=== PATIENT | female | born 1950 | race Caucasian/White ===

== ENCOUNTER 2022-03-17 13:28 | Inpatient (IN) | payer MEDICARE, SELFPAY ==
[2022-03-17] MEDS ORDERED: DOPamine 400 MG/D5W 250 ML 250 ML ONE (13:29)
[2022-03-17] MEDS ORDERED: Ondansetron PF 4 MG/2 ML Vial ONE (13:35)
[2022-03-17 14:22] LABS: #Lymphocytes 1.1 thou/uL (1.20-3.40); #Monocytes 0.5 thou/uL (0.11-0.59); #Neutrophils 7.8 thou/uL (1.40-6.50); %Basophils 0.2 % (0.0-1.0); %Eosinophils 0.1 % (0.0-10.0); %Lymphocytes 11.8 % (21.0-51.0); %Monocytes 5.4 % (0.0-10.0); %Neutrophils 82.4 % (42.0-75.0); Mean Corpuscular HGB CONC 33.6 g/dL (32.0-36.0); Mean Corpuscular Hemoglobin 32.1 pg (27.0-31.0); Mean Corpuscular Volume 95.6 fL (78.0-98.0); Platelet Count 188 thou/uL (130-400); RBC Distribution Width 11.3 % (11.5-14.5); Red Blood Cell (RBC) Count 4.98 mill/uL (4.20-5.40); White Blood Cell (WBC) Count 9.5 thou/uL (4.8-10.8)
[2022-03-17 14:31] LABS: CKMB 15.4 ng/mL (0-6.6)
[2022-03-17 14:39] LABS: Anion Gap 22 mmol/L (10-20); BUN (Urea Nitrogen) 9 mg/dL (9.8-20.1); Calc. Creatinine Clearance 0 mL/min (70-130); Calcium 8.4 mg/dL (7.8-10.44); Carbon Dioxide 15 mmol/L (23-31); Chloride 106 mmol/L (98-107); Estimated GFR 86; Glucose 126 mg/dL (80-115); Magnesium 1.9 mg/dL (1.6-2.6); Potassium 4.2 mmol/L (3.5-5.1); Sodium 139 mmol/L (136-145)
[2022-03-17] MEDS ORDERED: Electrolyte Replacement Protocol 1 EACH IVPB ONE (14:58)
[2022-03-17] MEDS ORDERED: Electrolyte Replacement Protocol FS PRN (15:30)
[2022-03-17] MEDS ORDERED: Magnesium 2 GM/50 ML(in water) 2 GM in Premix Bag 1 BAG IVPB SCH (15:30)
[2022-03-17 15:44] LABS: Lactic Acid 1.2 mmol/L (0.5-2.2)
[2022-03-17] MEDS: Sodium Chloride 0.9% 1,000 ML IV SCH (17:32)
[2022-03-17 17:50] LABS: Troponin I 6.242 ng/mL (< 0.028)
[2022-03-17] MEDS: DOPamine 400 MG/D5W 250 ML 250 ML IVPB SCH (19:40)
[2022-03-17] MEDS ORDERED: Ondansetron ODT 4 MG TAB PO PRN (20:09)
[2022-03-17 20:14] LABS: Troponin I 6.823 ng/mL (< 0.028)
[2022-03-17] MEDS: Ondansetron PF 4 MG/2 ML Vial IVP PRN (20:28)
[2022-03-17] MEDS: Atorvastatin Calcium 40 MG TAB PO SCH ×2 (20:28→21:09)
[2022-03-18] MEDS: DOPamine 400 MG/D5W 250 ML 250 ML IVPB SCH ×3 (02:16→20:38)
[2022-03-18] MEDS: Sodium Chloride 0.9% 1,000 ML IV SCH ×3 (02:17→20:38)
[2022-03-18 04:37] LABS: #Lymphocytes 1.5 thou/uL (1.20-3.40); #Monocytes 0.5 thou/uL (0.11-0.59); #Neutrophils 6.3 thou/uL (1.40-6.50); %Basophils 0.2 % (0.0-1.0); %Lymphocytes 18.1 % (21.0-51.0); %Monocytes 6.1 % (0.0-10.0); %Neutrophils 75.6 % (42.0-75.0); Hemoglobin 14.6 g/dL (12.0-16.0); Mean Corpuscular HGB CONC 34.2 g/dL (32.0-36.0); Mean Corpuscular Hemoglobin 32.4 pg (27.0-31.0); Mean Corpuscular Volume 94.7 fL (78.0-98.0); Mean Platelet Volume 9.8 fL (7.4-10.4); Platelet Count 171 thou/uL (130-400); RBC Distribution Width 11.1 % (11.5-14.5); White Blood Cell (WBC) Count 8.3 thou/uL (4.8-10.8)
[2022-03-18 04:47] LABS: ALT (SGPT) 14 U/L (8-55); AST (SGOT) 40 U/L (5-34); Albumin 3.6 g/dL (3.4-4.8); Alkaline Phosphatase 48 U/L (40-110); Anion Gap 14 mmol/L (10-20); BUN (Urea Nitrogen) 8 mg/dL (9.8-20.1); Bilirubin, Total 0.5 mg/dL (0.2-1.2); Calc. Creatinine Clearance 65 mL/min (70-130); Carbon Dioxide 22 mmol/L (23-31); Chloride 106 mmol/L (98-107); Estimated GFR 83; Globulin 2.1 g/dL (2.4-3.5); Glucose 148 mg/dL (80-115); Protein, Total 5.7 g/dL (5.8-8.1); Sodium 138 mmol/L (136-145)
[2022-03-18] MEDS: Aspirin 81 mg Enteric Coated Tablet PO SCH (09:04)
[2022-03-18] MEDS ORDERED: Promethazine HCl 25 MG/ML VIAL IM SCH (20:00)
[2022-03-18] MEDS: Heparin 5,000 UNITS/ML VIAL SC SCH (20:38)
[2022-03-18] MEDS: Atorvastatin Calcium 40 MG TAB PO SCH (20:55)
[2022-03-19 04:12] LABS: #Lymphocytes 2.3 thou/uL (1.20-3.40); #Monocytes 0.7 thou/uL (0.11-0.59); #Neutrophils 6.2 thou/uL (1.40-6.50); %Basophils 0.3 % (0.0-1.0); %Eosinophils 0.1 % (0.0-10.0); %Lymphocytes 25.3 % (21.0-51.0); %Monocytes 7.1 % (0.0-10.0); %Neutrophils 67.2 % (42.0-75.0); Hemoglobin 14.5 g/dL (12.0-16.0); Mean Corpuscular HGB CONC 34.4 g/dL (32.0-36.0); Mean Corpuscular Hemoglobin 32.6 pg (27.0-31.0); Mean Corpuscular Volume 94.8 fL (78.0-98.0); Mean Platelet Volume 10.2 fL (7.4-10.4); Platelet Count 151 thou/uL (130-400); RBC Distribution Width 11.1 % (11.5-14.5); Red Blood Cell (RBC) Count 4.45 mill/uL (4.20-5.40); White Blood Cell (WBC) Count 9.2 thou/uL (4.8-10.8)
[2022-03-19 04:34] LABS: ALT (SGPT) 12 U/L (8-55); AST (SGOT) 36 U/L (5-34); Albumin 3.2 g/dL (3.4-4.8); Alkaline Phosphatase 49 U/L (40-110); Anion Gap 12 mmol/L (10-20); BUN (Urea Nitrogen) 7 mg/dL (9.8-20.1); Bilirubin, Total 0.7 mg/dL (0.2-1.2); Calc. Creatinine Clearance 63 mL/min (70-130); Calcium 8.2 mg/dL (7.8-10.44); Carbon Dioxide 23 mmol/L (23-31); Chloride 105 mmol/L (98-107); Estimated GFR 77; Globulin 2.3 g/dL (2.4-3.5); Glucose 126 mg/dL (80-115); Magnesium 1.9 mg/dL (1.6-2.6); Potassium 3.9 mmol/L (3.5-5.1); Protein, Total 5.5 g/dL (5.8-8.1); Sodium 136 mmol/L (136-145)
[2022-03-19] MEDS ORDERED: Magnesium 2 GM/50 ML(in water) 2 GM in Premix Bag 1 BAG IVPB SCH (05:00)
[2022-03-19] MEDS: DOPamine 400 MG/D5W 250 ML 250 ML IVPB SCH ×2 (06:30→15:57)
[2022-03-19] MEDS: Heparin 5,000 UNITS/ML VIAL SC SCH ×2 (09:23→20:40)
[2022-03-19] MEDS: Aspirin 81 mg Enteric Coated Tablet PO SCH (09:23)
[2022-03-19] MEDS: Atorvastatin Calcium 40 MG TAB PO SCH (20:38)
[2022-03-20 05:15] LABS: #Eosinphils 0.3 thou/uL (0.0-0.7); #Lymphocytes 2.1 thou/uL (1.20-3.40); #Monocytes 0.7 thou/uL (0.11-0.59); #Neutrophils 4.7 thou/uL (1.40-6.50); %Basophils 0.4 % (0.0-1.0); %Eosinophils 3.8 % (0.0-10.0); %Lymphocytes 27.2 % (21.0-51.0); %Monocytes 8.4 % (0.0-10.0); %Neutrophils 60.2 % (42.0-75.0); Hemoglobin 14.3 g/dL (12.0-16.0); Mean Corpuscular HGB CONC 34.3 g/dL (32.0-36.0); Mean Corpuscular Hemoglobin 32.1 pg (27.0-31.0); Mean Corpuscular Volume 93.8 fL (78.0-98.0); Mean Platelet Volume 10.9 fL (7.4-10.4); Platelet Count 159 thou/uL (130-400); RBC Distribution Width 11.1 % (11.5-14.5); Red Blood Cell (RBC) Count 4.46 mill/uL (4.20-5.40); White Blood Cell (WBC) Count 7.9 thou/uL (4.8-10.8)
[2022-03-20 05:29] LABS: ALT (SGPT) 11 U/L (8-55); AST (SGOT) 22 U/L (5-34); Albumin 3.2 g/dL (3.4-4.8); Alkaline Phosphatase 52 U/L (40-110); Anion Gap 14 mmol/L (10-20); BUN (Urea Nitrogen) 6 mg/dL (9.8-20.1); Bilirubin, Total 0.7 mg/dL (0.2-1.2); Calc. Creatinine Clearance 70 mL/min (70-130); Calcium 8.2 mg/dL (7.8-10.44); Carbon Dioxide 20 mmol/L (23-31); Chloride 105 mmol/L (98-107); Estimated GFR 86; Globulin 2.4 g/dL (2.4-3.5); Glucose 136 mg/dL (80-115); Magnesium 1.9 mg/dL (1.6-2.6); Potassium 3.7 mmol/L (3.5-5.1); Protein, Total 5.6 g/dL (5.8-8.1); Sodium 135 mmol/L (136-145)
[2022-03-20] MEDS: Aspirin 81 mg Enteric Coated Tablet PO SCH (08:29)
[2022-03-20] MEDS: Heparin 5,000 UNITS/ML VIAL SC SCH ×2 (08:29→21:27)
[2022-03-20] MEDS: DOPamine 400 MG/D5W 250 ML 250 ML IVPB SCH ×2 (08:29→16:53)
[2022-03-20] MEDS ORDERED: Magnesium 2 GM/50 ML(in water) 2 GM in Premix Bag 1 BAG IVPB SCH (09:00)
[2022-03-20] MEDS ORDERED: Lidocaine 1% PF 5 ML VIAL FS SCH (12:45)
[2022-03-20] MEDS ORDERED: Potassium Chloride 20 MEQ in Premix Bag 1 BAG IVPB SCH (16:30)
[2022-03-20] MEDS: Atorvastatin Calcium 40 MG TAB PO SCH (21:24)
[2022-03-21 06:48] LABS: #Eosinphils 0.3 thou/uL (0.0-0.7); #Lymphocytes 1.5 thou/uL (1.20-3.40); #Monocytes 0.4 thou/uL (0.11-0.59); #Neutrophils 2.4 thou/uL (1.40-6.50); %Basophils 0.4 % (0.0-1.0); %Eosinophils 7.2 % (0.0-10.0); %Lymphocytes 31.5 % (21.0-51.0); %Monocytes 9.3 % (0.0-10.0); %Neutrophils 51.6 % (42.0-75.0); Hemoglobin 13.1 g/dL (12.0-16.0); Mean Corpuscular HGB CONC 34.4 g/dL (32.0-36.0); Mean Corpuscular Hemoglobin 32.3 pg (27.0-31.0); Platelet Count 188 thou/uL (130-400); RBC Distribution Width 10.9 % (11.5-14.5); Red Blood Cell (RBC) Count 4.07 mill/uL (4.20-5.40); White Blood Cell (WBC) Count 4.6 thou/uL (4.8-10.8)
[2022-03-21 06:52] LABS: ALT (SGPT) 11 U/L (8-55); AST (SGOT) 17 U/L (5-34); Albumin 3.1 g/dL (3.4-4.8); Alkaline Phosphatase 46 U/L (40-110); Anion Gap 15 mmol/L (10-20); BUN (Urea Nitrogen) Less than 4 mg/dL (9.8-20.1); Bilirubin, Total 0.6 mg/dL (0.2-1.2); Calc. Creatinine Clearance 83 mL/min (70-130); Calcium 8.4 mg/dL (7.8-10.44); Carbon Dioxide 19 mmol/L (23-31); Chloride 108 mmol/L (98-107); Estimated GFR 95; Globulin 2.3 g/dL (2.4-3.5); Glucose 92 mg/dL (80-115); Potassium 3.6 mmol/L (3.5-5.1); Protein, Total 5.4 g/dL (5.8-8.1); Sodium 138 mmol/L (136-145)
[2022-03-21] MEDS ORDERED: Communication Order-Pharmacy FS SCH (08:45)
[2022-03-21] MEDS: Heparin 5,000 UNITS/ML VIAL SC SCH ×3 (08:46→21:20)
[2022-03-21] MEDS: Aspirin 81 mg Enteric Coated Tablet PO SCH (08:47)
[2022-03-21] MEDS ORDERED: Potassium Chloride 20 MEQ in Premix Bag 1 BAG IVPB SCH (09:15)
[2022-03-21 09:27] LABS: Magnesium 1.9 mg/dL (1.6-2.6)
[2022-03-21 09:37] LABS: Troponin I 1.025 ng/mL (< 0.028)
[2022-03-21] MEDS: Milrinone Lactate/D5W 20 MG in Premix Bag 1 BAG IV SCH (10:10)
[2022-03-21] MEDS ORDERED: Magnesium 2 GM/50 ML(in water) 2 GM in Premix Bag 1 BAG IVPB SCH (11:00)
[2022-03-21] MEDS: DOPamine 400 MG/D5W 250 ML 250 ML IVPB SCH (14:35)
[2022-03-21] MEDS: Atorvastatin Calcium 40 MG TAB PO SCH (20:29)
[2022-03-22] MEDS: Milrinone Lactate/D5W 20 MG in Premix Bag 1 BAG IV SCH (04:18)
[2022-03-22 05:30] LABS: #Eosinphils 0.6 thou/uL (0.0-0.7); #Lymphocytes 1.6 thou/uL (1.20-3.40); #Monocytes 0.5 thou/uL (0.11-0.59); #Neutrophils 1.7 thou/uL (1.40-6.50); %Basophils 0.9 % (0.0-1.0); %Eosinophils 13.3 % (0.0-10.0); %Lymphocytes 36.7 % (21.0-51.0); %Monocytes 11.3 % (0.0-10.0); %Neutrophils 37.9 % (42.0-75.0); Hemoglobin 13.7 g/dL (12.0-16.0); Mean Corpuscular HGB CONC 34.5 g/dL (32.0-36.0); Mean Corpuscular Hemoglobin 32.2 pg (27.0-31.0); Mean Corpuscular Volume 93.5 fL (78.0-98.0); Platelet Count 284 thou/uL (130-400); Red Blood Cell (RBC) Count 4.24 mill/uL (4.20-5.40); White Blood Cell (WBC) Count 4.4 thou/uL (4.8-10.8)
[2022-03-22 05:53] LABS: ALT (SGPT) 10 U/L (8-55); AST (SGOT) 14 U/L (5-34); Albumin 3.3 g/dL (3.4-4.8); Alkaline Phosphatase 52 U/L (40-110); Anion Gap 12 mmol/L (10-20); BUN (Urea Nitrogen) Less than 4 mg/dL (9.8-20.1); Bilirubin, Total 0.5 mg/dL (0.2-1.2); Calc. Creatinine Clearance 77 mL/min (70-130); Calcium 8.8 mg/dL (7.8-10.44); Carbon Dioxide 23 mmol/L (23-31); Chloride 108 mmol/L (98-107); Estimated GFR 93; Globulin 2.5 g/dL (2.4-3.5); Glucose 92 mg/dL (80-115); Potassium 3.9 mmol/L (3.5-5.1); Protein, Total 5.8 g/dL (5.8-8.1); Sodium 139 mmol/L (136-145)
[2022-03-22] MEDS ORDERED: SODIUM BICARBONATE IV SCH (06:00)
[2022-03-22] MEDS ORDERED: DEXTROSE 5% IV SCH (06:00)
[2022-03-22] MEDS ORDERED: WATER IV SCH (06:00)
[2022-03-22] MEDS ORDERED: Lidocaine 1% (PF) 30 ML VIAL ONE ×2 (06:54→16:08)
[2022-03-22] MEDS: Heparin 5,000 UNITS/ML VIAL SC SCH ×2 (07:30→21:30)
[2022-03-22] MEDS ORDERED: Midazolam HCl 2 mg/2 ml Vial ONE (08:00)
[2022-03-22] MEDS ORDERED: Iopamidol 370 76% 100 ML VIAL ONE (08:00)
[2022-03-22] MEDS ORDERED: Fentanyl 100 MCG/2 ML VIAL ONE (08:00)
[2022-03-22] MEDS ORDERED: Sodium Chloride 0.9% 200 ML IV PRN (09:14)
[2022-03-22] MEDS ORDERED: Nitroglycerin 0.4 MG TAB (25 Tab Bottle) SL PRN (09:14)
[2022-03-22] MEDS: Aspirin 81 mg Enteric Coated Tablet PO SCH (10:00)
[2022-03-22] MEDS: DOPamine 400 MG/D5W 250 ML 250 ML IVPB SCH (10:38)
[2022-03-22] MEDS: Atorvastatin Calcium 40 MG TAB PO SCH (21:30)
[2022-03-23] MEDS ORDERED: Bupivacaine/Epinephrine 0.25% 30 ML VIAL ONE (00:38)
[2022-03-23 08:37] LABS: #Eosinphils 0.2 thou/uL (0.0-0.7); #Lymphocytes 1.2 thou/uL (1.20-3.40); #Monocytes 0.7 thou/uL (0.11-0.59); #Neutrophils 3.2 thou/uL (1.40-6.50); %Basophils 0.3 % (0.0-1.0); %Eosinophils 3.3 % (0.0-10.0); %Monocytes 12.6 % (0.0-10.0); %Neutrophils 60.8 % (42.0-75.0); Mean Corpuscular HGB CONC 33.5 g/dL (32.0-36.0); Mean Corpuscular Volume 95.4 fL (78.0-98.0); Mean Platelet Volume 8.1 fL (7.4-10.4); Platelet Count 340 thou/uL (130-400); RBC Distribution Width 11.1 % (11.5-14.5); White Blood Cell (WBC) Count 5.3 thou/uL (4.8-10.8)
[2022-03-23 08:50] LABS: Anion Gap 17 mmol/L (10-20); BUN (Urea Nitrogen) 5 mg/dL (9.8-20.1); Calc. Creatinine Clearance 72 mL/min (70-130); Carbon Dioxide 20 mmol/L (23-31); Chloride 105 mmol/L (98-107); Estimated GFR 94; Potassium 3.6 mmol/L (3.5-5.1); Sodium 138 mmol/L (136-145)
[2022-03-23 08:51] LABS: ALT (SGPT) 12 U/L (8-55); AST (SGOT) 24 U/L (5-34); Albumin 3.4 g/dL (3.4-4.8); Alkaline Phosphatase 56 U/L (40-110); Bilirubin, Total 0.7 mg/dL (0.2-1.2); Globulin 2.5 g/dL (2.4-3.5); Glucose 110 mg/dL (80-115); Protein, Total 5.9 g/dL (5.8-8.1)
[2022-03-23] MEDS ORDERED: Sodium Chloride 0.9% (PF) 10 ML VIAL FS PRN (09:00)
[2022-03-23] MEDS ORDERED: Pantoprazole 40 MG VIAL IVP SCH (09:00)
[2022-03-23] MEDS ORDERED: Potassium Chloride 10 MEQ in Dextrose 5 %-0.45 % NaCl 1,000 ML IV SCH (09:00)
[2022-03-23] MEDS: Ondansetron PF 4 MG/2 ML Vial IVP PRN ×2 (10:09→18:06)
[2022-03-23] MEDS: D5 1/2 NS w/10 mEq KCl 1,000 ML/1,000 ML BAG IV SCH (10:10)
[2022-03-23] MEDS: Aspirin 81 mg Enteric Coated Tablet PO SCH (10:10)
[2022-03-23] MEDS: DOPamine 400 MG/D5W 250 ML 250 ML IVPB SCH (10:42)
[2022-03-23] MEDS: Heparin 5,000 UNITS/ML VIAL SC SCH ×2 (11:51→20:09)
[2022-03-23] MEDS ORDERED: CEFAZOLIN 1 GM VIAL ONE (12:22)
[2022-03-23] MEDS ORDERED: Gentamicin 80 MG/100 ML BAG ONE (12:22)
[2022-03-23] MEDS ORDERED: Lidocaine 1% (PF) 30 ML VIAL ONE (12:23)
[2022-03-23] MEDS ORDERED: Ketamine 50 MG/ML (10ML VIAL) ONE (14:12)
[2022-03-23] MEDS ORDERED: Midazolam HCl 2 mg/2 ml Vial ONE (14:36)
[2022-03-23] MEDS ORDERED: Milrinone 20 MG in Sodium Chloride 0.9% 100 ML IVPB SCH (18:00)
[2022-03-23] MEDS ORDERED: MILRINONE LACTATE IVPB SCH (18:15)
[2022-03-23] MEDS ORDERED: SODIUM CHLORIDE 0.9% IVPB SCH (18:15)
[2022-03-23] MEDS ORDERED: D5W IVPB SCH (18:15)
[2022-03-23] MEDS: Milrinone Lactate/D5W 20 MG in Premix Bag 1 BAG IVPB SCH (18:35)
[2022-03-23] MEDS: Scopolamine 1.5 mg/72 hour Patch TD SCH (19:43)
[2022-03-23] MEDS: Atorvastatin Calcium 40 MG TAB PO SCH (20:10)
[2022-03-23 21:36] LABS: Metanephrine,Plasma <10.0 pg/mL (0.0-88.0); Normetanephrine,Pl 28.2 pg/mL (0.0-285.2)
[2022-03-24] MEDS: D5 1/2 NS w/10 mEq KCl 1,000 ML/1,000 ML BAG IV SCH (02:00)
[2022-03-24] MEDS ORDERED: Acetaminophen 325 MG TAB PO PRN (04:15)
[2022-03-24 04:48] LABS: #Eosinphils 0.3 thou/uL (0.0-0.7); #Lymphocytes 1.2 thou/uL (1.20-3.40); #Monocytes 0.7 thou/uL (0.11-0.59); #Neutrophils 4.2 thou/uL (1.40-6.50); %Basophils 0.6 % (0.0-1.0); %Eosinophils 5.3 % (0.0-10.0); %Lymphocytes 18.1 % (21.0-51.0); %Monocytes 11.3 % (0.0-10.0); %Neutrophils 64.8 % (42.0-75.0); Hemoglobin 13.4 g/dL (12.0-16.0); Mean Corpuscular HGB CONC 33.9 g/dL (32.0-36.0); Mean Corpuscular Hemoglobin 32.1 pg (27.0-31.0); Mean Corpuscular Volume 94.8 fL (78.0-98.0); Mean Platelet Volume 8.3 fL (7.4-10.4); Platelet Count 335 thou/uL (130-400); Red Blood Cell (RBC) Count 4.17 mill/uL (4.20-5.40); White Blood Cell (WBC) Count 6.5 thou/uL (4.8-10.8)
[2022-03-24 05:10] LABS: ALT (SGPT) 29 U/L (8-55); AST (SGOT) 55 U/L (5-34); Alkaline Phosphatase 51 U/L (40-110); Anion Gap 13 mmol/L (10-20); BUN (Urea Nitrogen) 7 mg/dL (9.8-20.1); Bilirubin, Total 0.7 mg/dL (0.2-1.2); Calc. Creatinine Clearance 69 mL/min (70-130); Calcium 8.6 mg/dL (7.8-10.44); Carbon Dioxide 24 mmol/L (23-31); Chloride 105 mmol/L (98-107); Estimated GFR 93; Globulin 2.2 g/dL (2.4-3.5); Glucose 117 mg/dL (80-115); Potassium 3.4 mmol/L (3.5-5.1); Protein, Total 5.2 g/dL (5.8-8.1); Sodium 139 mmol/L (136-145)
[2022-03-24] MEDS: Potassium Chloride 20 MEQ in Premix Bag 1 BAG IVPB SCH ×2 (07:59→09:50)
[2022-03-24] MEDS: Heparin 5,000 UNITS/ML VIAL SC SCH ×2 (08:02→21:43)
[2022-03-24] MEDS: Aspirin 81 mg Enteric Coated Tablet PO SCH (08:03)
[2022-03-24] MEDS: Ondansetron PF 4 MG/2 ML Vial IVP PRN (08:14)
[2022-03-24 09:06] LABS: Magnesium 1.8 mg/dL (1.6-2.6)
[2022-03-24] MEDS ORDERED: Dexamethasone 4 mg/ml Vial SLOW IVP SCH (09:15)
[2022-03-24] MEDS ORDERED: Magnesium 2 GM/50 ML(in water) 2 GM in Premix Bag 1 BAG IVPB SCH (10:00)
[2022-03-24 11:21] LABS: Troponin I 0.333 ng/mL (< 0.028)
[2022-03-24] MEDS: Milrinone Lactate/D5W 20 MG in Premix Bag 1 BAG IVPB SCH (12:23)
[2022-03-24 14:14] LABS: SARS-CoV-2 NAA Rapid Test DETECTED (NotDetected)
[2022-03-24] MEDS: Atorvastatin Calcium 40 MG TAB PO SCH ×2 (21:43→21:49)
[2022-03-24] MEDS: DOPamine 400 MG/D5W 250 ML 250 ML IVPB SCH (21:44)
[2022-03-25 05:42] LABS: #Eosinphils 0.2 thou/uL (0.0-0.7); #Monocytes 0.8 thou/uL (0.11-0.59); #Neutrophils 4.2 thou/uL (1.40-6.50); %Basophils 0.5 % (0.0-1.0); %Eosinophils 2.7 % (0.0-10.0); %Lymphocytes 27.9 % (21.0-51.0); %Monocytes 10.6 % (0.0-10.0); %Neutrophils 58.3 % (42.0-75.0); Hemoglobin 12.5 g/dL (12.0-16.0); Mean Corpuscular HGB CONC 34.2 g/dL (32.0-36.0); Mean Corpuscular Hemoglobin 32.2 pg (27.0-31.0); Mean Corpuscular Volume 94.2 fL (78.0-98.0); Mean Platelet Volume 7.7 fL (7.4-10.4); Platelet Count 352 thou/uL (130-400); RBC Distribution Width 10.8 % (11.5-14.5); Red Blood Cell (RBC) Count 3.88 mill/uL (4.20-5.40); White Blood Cell (WBC) Count 7.2 thou/uL (4.8-10.8)
[2022-03-25 06:04] LABS: ALT (SGPT) 36 U/L (8-55); AST (SGOT) 51 U/L (5-34); Albumin 3.1 g/dL (3.4-4.8); Alkaline Phosphatase 53 U/L (40-110); Anion Gap 12 mmol/L (10-20); BUN (Urea Nitrogen) 10 mg/dL (9.8-20.1); Bilirubin, Total 0.6 mg/dL (0.2-1.2); Calc. Creatinine Clearance 72 mL/min (70-130); Calcium 8.5 mg/dL (7.8-10.44); Carbon Dioxide 25 mmol/L (23-31); Chloride 104 mmol/L (98-107); Estimated GFR 94; Globulin 2.3 g/dL (2.4-3.5); Glucose 96 mg/dL (80-115); Potassium 3.6 mmol/L (3.5-5.1); Protein, Total 5.4 g/dL (5.8-8.1); Sodium 137 mmol/L (136-145)
[2022-03-25] MEDS: Milrinone Lactate/D5W 20 MG in Premix Bag 1 BAG IVPB SCH ×2 (06:59→17:11)
[2022-03-25] MEDS: D5 1/2 NS w/10 mEq KCl 1,000 ML/1,000 ML BAG IV SCH (08:18)
[2022-03-25] MEDS ORDERED: DOPamine 400 MG/D5W 250 ML 250 ML IVPB SCH (09:00)
[2022-03-25] MEDS: Potassium Chloride 20 MEQ in Premix Bag 1 BAG IVPB SCH ×2 (09:53→11:28)
[2022-03-25] MEDS: Heparin 5,000 UNITS/ML VIAL SC SCH ×2 (09:54→20:01)
[2022-03-25] MEDS: Dexamethasone 4 mg/ml Vial SLOW IVP SCH (09:54)
[2022-03-25] MEDS: Aspirin 81 mg Enteric Coated Tablet PO SCH (09:54)
[2022-03-25] MEDS ORDERED: Magnesium 2 GM/50 ML(in water) 2 GM in Premix Bag 1 BAG IVPB SCH (10:00)
[2022-03-25] MEDS: Scopolamine 1.5 mg/72 hour Patch TD SCH (15:16)
[2022-03-25] MEDS: Atorvastatin Calcium 40 MG TAB PO SCH (20:02)
[2022-03-26 04:52] LABS: #Eosinphils 0.4 thou/uL (0.0-0.7); #Lymphocytes 2.1 thou/uL (1.20-3.40); #Monocytes 0.7 thou/uL (0.11-0.59); #Neutrophils 2.9 thou/uL (1.40-6.50); %Basophils 0.7 % (0.0-1.0); %Lymphocytes 33.6 % (21.0-51.0); %Monocytes 11.1 % (0.0-10.0); %Neutrophils 47.7 % (42.0-75.0); Hemoglobin 12.1 g/dL (12.0-16.0); Mean Corpuscular Hemoglobin 32.3 pg (27.0-31.0); Mean Corpuscular Volume 95.2 fL (78.0-98.0); Mean Platelet Volume 8.2 fL (7.4-10.4); Platelet Count 359 thou/uL (130-400); Red Blood Cell (RBC) Count 3.74 mill/uL (4.20-5.40); White Blood Cell (WBC) Count 6.1 thou/uL (4.8-10.8)
[2022-03-26 05:13] LABS: ALT (SGPT) 36 U/L (8-55); AST (SGOT) 41 U/L (5-34); Albumin 3.1 g/dL (3.4-4.8); Alkaline Phosphatase 51 U/L (40-110); Anion Gap 11 mmol/L (10-20); BUN (Urea Nitrogen) 10 mg/dL (9.8-20.1); Bilirubin, Total 0.5 mg/dL (0.2-1.2); Calc. Creatinine Clearance 0 mL/min (70-130); Calcium 8.4 mg/dL (7.8-10.44); Carbon Dioxide 25 mmol/L (23-31); Chloride 106 mmol/L (98-107); Estimated GFR 95; Globulin 2.2 g/dL (2.4-3.5); Glucose 86 mg/dL (80-115); Potassium 4.1 mmol/L (3.5-5.1); Protein, Total 5.3 g/dL (5.8-8.1); Sodium 138 mmol/L (136-145)
[2022-03-26] MEDS: Dexamethasone 4 mg/ml Vial SLOW IVP SCH (09:09)
[2022-03-26] MEDS: Heparin 5,000 UNITS/ML VIAL SC SCH ×2 (09:09→21:31)
[2022-03-26] MEDS: Milrinone Lactate/D5W 20 MG in Premix Bag 1 BAG IVPB SCH (09:09)
[2022-03-26] MEDS: Aspirin 81 mg Enteric Coated Tablet PO SCH (09:09)
[2022-03-26 09:18] LABS: Magnesium 2.2 mg/dL (1.6-2.6)
[2022-03-26 13:10] LABS: Prothrombin Time 12.7 sec (12.0-14.7)
[2022-03-26 13:11] LABS: PTT 27.1 sec (22.9-36.1)
[2022-03-26] MEDS: Atorvastatin Calcium 40 MG TAB PO SCH (21:31)
[2022-03-27 03:42] LABS: #Basophils 0.1 thou/uL (0.0-0.2); #Eosinphils 0.4 thou/uL (0.0-0.7); #Lymphocytes 2.9 thou/uL (1.20-3.40); #Monocytes 0.9 thou/uL (0.11-0.59); #Neutrophils 2.7 thou/uL (1.40-6.50); %Basophils 0.8 % (0.0-1.0); %Eosinophils 5.9 % (0.0-10.0); %Lymphocytes 42.3 % (21.0-51.0); %Monocytes 12.7 % (0.0-10.0); %Neutrophils 38.3 % (42.0-75.0); Hemoglobin 13.5 g/dL (12.0-16.0); Mean Corpuscular HGB CONC 33.5 g/dL (32.0-36.0); Mean Corpuscular Hemoglobin 31.9 pg (27.0-31.0); Mean Corpuscular Volume 95.2 fL (78.0-98.0); Platelet Count 414 thou/uL (130-400); RBC Distribution Width 11.2 % (11.5-14.5); Red Blood Cell (RBC) Count 4.24 mill/uL (4.20-5.40)
[2022-03-27 04:04] LABS: ALT (SGPT) 33 U/L (8-55); AST (SGOT) 30 U/L (5-34); Albumin 3.3 g/dL (3.4-4.8); Alkaline Phosphatase 56 U/L (40-110); Anion Gap 12 mmol/L (10-20); BUN (Urea Nitrogen) 6 mg/dL (9.8-20.1); Bilirubin, Total 0.4 mg/dL (0.2-1.2); Calc. Creatinine Clearance 72 mL/min (70-130); Calcium 8.7 mg/dL (7.8-10.44); Carbon Dioxide 23 mmol/L (23-31); Chloride 107 mmol/L (98-107); Estimated GFR 94; Globulin 2.4 g/dL (2.4-3.5); Glucose 98 mg/dL (80-115); Potassium 4.5 mmol/L (3.5-5.1); Protein, Total 5.7 g/dL (5.8-8.1); Sodium 137 mmol/L (136-145)
[2022-03-27] MEDS: Milrinone Lactate/D5W 20 MG in Premix Bag 1 BAG IVPB SCH (06:32)
[2022-03-27] MEDS: Aspirin 81 mg Enteric Coated Tablet PO SCH (09:36)
[2022-03-27] MEDS: Heparin 5,000 UNITS/ML VIAL SC SCH ×2 (09:36→21:47)
[2022-03-27] MEDS: Dexamethasone 4 mg/ml Vial SLOW IVP SCH (09:37)
[2022-03-27] MEDS ORDERED: Carvedilol 6.25 MG TAB PO SCH (10:15)
[2022-03-27 10:34] VITALS: BMI 18.5
[2022-03-27] MEDS: Carvedilol 6.25 MG TAB PO SCH (21:47)
[2022-03-27] MEDS: Atorvastatin Calcium 40 MG TAB PO SCH (21:48)
[2022-03-28 04:52] LABS: #Eosinphils 0.1 thou/uL (0.0-0.7); #Monocytes 0.9 thou/uL (0.11-0.59); #Neutrophils 5.2 thou/uL (1.40-6.50); %Basophils 0.4 % (0.0-1.0); %Eosinophils 0.6 % (0.0-10.0); %Lymphocytes 32.5 % (21.0-51.0); %Monocytes 9.5 % (0.0-10.0); %Neutrophils 56.9 % (42.0-75.0); Hemoglobin 12.6 g/dL (12.0-16.0); Mean Corpuscular HGB CONC 33.4 g/dL (32.0-36.0); Mean Corpuscular Hemoglobin 31.2 pg (27.0-31.0); Mean Corpuscular Volume 93.6 fL (78.0-98.0); Mean Platelet Volume 7.6 fL (7.4-10.4); Platelet Count 436 thou/uL (130-400); RBC Distribution Width 11.1 % (11.5-14.5); Red Blood Cell (RBC) Count 4.03 mill/uL (4.20-5.40); White Blood Cell (WBC) Count 9.1 thou/uL (4.8-10.8)
[2022-03-28 05:11] LABS: ALT (SGPT) 33 U/L (8-55); AST (SGOT) 34 U/L (5-34); Albumin 3.4 g/dL (3.4-4.8); Alkaline Phosphatase 54 U/L (40-110); Anion Gap 14 mmol/L (10-20); BUN (Urea Nitrogen) 8 mg/dL (9.8-20.1); Bilirubin, Total 0.4 mg/dL (0.2-1.2); Calc. Creatinine Clearance 69 mL/min (70-130); Calcium 8.9 mg/dL (7.8-10.44); Carbon Dioxide 24 mmol/L (23-31); Chloride 106 mmol/L (98-107); Estimated GFR 94; Globulin 2.5 g/dL (2.4-3.5); Glucose 94 mg/dL (80-115); Protein, Total 5.9 g/dL (5.8-8.1); Sodium 140 mmol/L (136-145)
[2022-03-28] MEDS: Aspirin 81 mg Enteric Coated Tablet PO SCH (08:54)
[2022-03-28] MEDS: Carvedilol 6.25 MG TAB PO SCH ×2 (08:54→20:35)
[2022-03-28] MEDS: Heparin 5,000 UNITS/ML VIAL SC SCH ×2 (08:55→20:35)
[2022-03-28] MEDS: Dexamethasone 4 mg/ml Vial SLOW IVP SCH (08:55)
[2022-03-28 10:08] LABS: Magnesium 2.1 mg/dL (1.6-2.6)
[2022-03-28] MEDS: Spironolactone 25 MG TAB PO SCH (15:21)
[2022-03-28] MEDS: Scopolamine 1.5 mg/72 hour Patch TD SCH (17:03)
[2022-03-28] MEDS: Atorvastatin Calcium 40 MG TAB PO SCH (20:35)
[2022-03-29 03:54] LABS: #Basophils 0.1 thou/uL (0.0-0.2); #Lymphocytes 3.3 thou/uL (1.20-3.40); #Monocytes 0.8 thou/uL (0.11-0.59); #Neutrophils 7.2 thou/uL (1.40-6.50); %Basophils 0.6 % (0.0-1.0); %Eosinophils 0.4 % (0.0-10.0); %Monocytes 6.7 % (0.0-10.0); %Neutrophils 63.4 % (42.0-75.0); Mean Corpuscular HGB CONC 34.3 g/dL (32.0-36.0); Mean Corpuscular Hemoglobin 31.9 pg (27.0-31.0); Mean Platelet Volume 7.7 fL (7.4-10.4); Platelet Count 429 thou/uL (130-400); RBC Distribution Width 11.2 % (11.5-14.5); Red Blood Cell (RBC) Count 4.09 mill/uL (4.20-5.40); White Blood Cell (WBC) Count 11.3 thou/uL (4.8-10.8)
[2022-03-29 04:16] LABS: ALT (SGPT) 40 U/L (8-55); AST (SGOT) 36 U/L (5-34); Albumin 3.5 g/dL (3.4-4.8); Alkaline Phosphatase 55 U/L (40-110); Anion Gap 14 mmol/L (10-20); BUN (Urea Nitrogen) 12 mg/dL (9.8-20.1); Bilirubin, Total 0.5 mg/dL (0.2-1.2); Calc. Creatinine Clearance 66 mL/min (70-130); Calcium 9.2 mg/dL (7.8-10.44); Carbon Dioxide 25 mmol/L (23-31); Chloride 104 mmol/L (98-107); Estimated GFR 91; Globulin 2.4 g/dL (2.4-3.5); Glucose 105 mg/dL (80-115); Potassium 3.8 mmol/L (3.5-5.1); Protein, Total 5.9 g/dL (5.8-8.1); Sodium 139 mmol/L (136-145)
[2022-03-29] MEDS: Heparin 5,000 UNITS/ML VIAL SC SCH (07:59)
[2022-03-29] MEDS: Aspirin 81 mg Enteric Coated Tablet PO SCH (07:59)
[2022-03-29] MEDS: Carvedilol 6.25 MG TAB PO SCH (07:59)
[2022-03-29] MEDS: Dexamethasone 4 mg/ml Vial SLOW IVP SCH (07:59)
[2022-03-29 10:11] VITALS: BP 104/76
[2022-03-29 12:28] VITALS: TEMP 98.6
[2022-03-29] MEDS: Spironolactone 25 MG TAB PO SCH (14:33)
== END 2022-03-29 18:57 | disposition home or self-care (01) | DRG 981 ==
LOC: ERS 13:28 → CCU 14:54 → IMCU/EMU 03-26 14:09 → CCU 03-26 14:16 → IMCU/EMU 03-26 19:24
PROVIDERS: ADMIT Internal Medicine; ATTEND Internal Medicine
PROC: 3E033XZ Introduction of Vasopressor into Peripheral Vein, Percutaneous Approach (ICD-10-PCS; 2022-03-17)
PROC: 8E0ZXY6 Isolation (ICD-10-PCS; 2022-03-17)
PROC: B548ZZA Ultrasonography of Superior Vena Cava, Guidance (ICD-10-PCS; 2022-03-20)
PROC: 02HV33Z Insertion of Infusion Device into Superior Vena Cava, Percutaneous Approach (ICD-10-PCS; 2022-03-20)
PROC: 5A12012 Performance of Cardiac Output, Single, Manual (ICD-10-PCS; 2022-03-20)
PROC: 02HK3JZ Insertion of Pacemaker Lead into Right Ventricle, Percutaneous Approach (ICD-10-PCS; principal; 2022-03-22)
PROC: 5A1223Z Performance of Cardiac Pacing, Continuous (ICD-10-PCS; 2022-03-22)
PROC: 4A023N7 Measurement of Cardiac Sampling and Pressure, Left Heart, Percutaneous Approach (ICD-10-PCS; 2022-03-22)
PROC: B2111ZZ Fluoroscopy of Multiple Coronary Arteries using Low Osmolar Contrast (ICD-10-PCS; 2022-03-22)
PROC: B2151ZZ Fluoroscopy of Left Heart using Low Osmolar Contrast (ICD-10-PCS; 2022-03-22)
PROC: 02H633Z Insertion of Infusion Device into Right Atrium, Percutaneous Approach (ICD-10-PCS; 2022-03-23)
PROC: 0JH608Z Insertion of Defibrillator Generator into Chest Subcutaneous Tissue and Fascia, Open Approach (ICD-10-PCS; 2022-03-23)
PROC: 02HK3KZ Insertion of Defibrillator Lead into Right Ventricle, Percutaneous Approach (ICD-10-PCS; 2022-03-23)
PROC: 02H63KZ Insertion of Defibrillator Lead into Right Atrium, Percutaneous Approach (ICD-10-PCS; 2022-03-23)
PROC: 3E043XZ Introduction of Vasopressor into Central Vein, Percutaneous Approach (ICD-10-PCS; 2022-03-24)
DX: U07.1 COVID-19 (principal); J12.82 Pneumonia due to coronavirus disease 2019; I21.A1 Myocardial infarction type 2; R57.0 Cardiogenic shock; I50.21 Acute systolic (congestive) heart failure; I46.2 Cardiac arrest due to underlying cardiac condition; I42.8 Other cardiomyopathies; I47.1 Supraventricular tachycardia; R00.1 Bradycardia, unspecified; I07.1 Rheumatic tricuspid insufficiency; I25.10 Atherosclerotic heart disease of native coronary artery without angina pectoris; E87.6 Hypokalemia; R11.0 Nausea; E83.42 Hypomagnesemia; Z88.5 Allergy status to narcotic agent; Z98.890 Other specified postprocedural states; Z28.310 Unvaccinated for COVID-19
CPT/HCPCS: 33210; 33249; 36415; 36416; 71045; 80048; 80053; 82010; 82550; 82553; 83605; 83735; 83835; 83880; 84443; 84484; 85025; 85610; 85652; 85730; 86140; 93005; 93010; 93306; 93458; 93798; 96365; 96366; 96375; 99152; C1721; C1769; C1777; C1894; C1898; C9113; J0690; J1100; J1250; J1265; J1580; J1644; J2001; J2250; J2260; J2405; J2550; J3010; J3475; J3480; J7050; J7070; Q0162; Q9967; U0002